=== PATIENT | male | born 1960 | race American Indian/Alaskan Native ===

== ENCOUNTER 2021-07-31 11:15 | Outpatient (CLI) | payer OTHER ==
--- NOTE | 2021-07-31 12:11 | XRay Report ---
BILATERAL WRIST 3 VIEW(S) INDICATION / CLINICAL INFORMATION: BILATERAL WRIST PAIN COMPARISON: None available. FINDINGS: BONES / JOINT(S): There are bilateral fairly symmetric erosions/cysts in the carpal bones. There are resorptive changes at the proximal hamate bilaterally. Bilateral small joint effusions. These finding s can be seen with inflammatory arthropathy. Recommend clinical correlation. No acute fracture or dis location. SOFT TISSUES: No significant abnormality. ADDITIONAL FINDINGS: None. Signer Name: Saturnino Chandra MD Signed: 07/31/2021 12:07 PM Workstation Name: [email or web address]
== END 2021-07-31 11:16 | disposition home or self-care (01) ==
LOC: XRAY 11:15
PROVIDERS: ATTEND Internal Medicine
DX: M25.432 Effusion, left wrist (principal); M25.431 Effusion, right wrist; M19.032 Primary osteoarthritis, left wrist; M19.031 Primary osteoarthritis, right wrist